=== PATIENT | female | born 1985 | race Caucasian/White ===

== ENCOUNTER → 2021-07-05 | Outpatient (CLI) | payer OTHER ==
--- NOTE | 2021-07-06 09:35 | MM ---
Reason for exam: screening (asymptomatic). Baseline mammogram. History: Patient is nulliparous. Family history of breast cancer in paternal grandmother at age 50 and breast cancer in maternal grandmother at age 50. Taking hormonal contraceptives beginning at age 19. Physical Findings: Nurse did not find any significant physical abnormalities on exam. MG 3D Screening Mammo W/Cad Bilateral CC and MLO view(s) were taken. There are scattered fibroglandular densities. Finding: There is a 12 mm lobulated mass in the upper outer quadrant of the right breast. ASSESSMENT: Incomplete: need additional imaging evaluation, BI-RAD 0 RECOMMENDATION: Special view mammogram and ultrasound of the right breast. [facility] will attempt to contact patient to return for supplemental views and ultrasound.
== END | disposition home or self-care (01) ==
LOC: RADMAMWWP 07:02
PROVIDERS: ATTEND Family Medicine
DX: Z12.39 Encounter for other screening for malignant neoplasm of breast (principal); Z80.3 Family history of malignant neoplasm of breast
CPT/HCPCS: 77063; 77067

== ENCOUNTER → 2021-07-13 | Outpatient (CLI) | payer OTHER ==
--- NOTE | 2021-07-13 11:46 | MM ---
Reason for exam: additional evaluation requested from abnormal screening. Last mammogram was performed less than 1 month ago. History: Patient is nulliparous. Family history of breast cancer in paternal grandmother at age 50 and breast cancer in maternal grandmother at age 50. Taking hormonal contraceptives beginning at age 19. Physical Findings: Nurse Summary: 0.5cm nodule in the right breast at 11 o'clock (nurse ms). MG 3D Work Up W/Cad RT Spot compression CC, spot compression MLO, and LM view(s) were taken of the right breast. Prior study comparison: July 05, 2021, bilateral MG 3d screening mammo w/cad. There are scattered fibroglandular densities. Finding: There is an intermediate concern, suspicious 14 mm equal density (isodense), circumscribed lobulated mass located 8 cm from the nipple in the upper outer quadrant, middle position of the right breast. These results were verbally communicated with the patient and result sheet given to the patient on 07/13/21. ASSESSMENT: Incomplete: need additional imaging evaluation, BI-RAD 0 RECOMMENDATION: Ultrasound of the right breast.
--- NOTE | 2021-07-13 11:50 | USB ---
Reason for exam: additional evaluation requested from abnormal screening. History: Patient is nulliparous. Family history of breast cancer in paternal grandmother at age 50 and breast cancer in maternal grandmother at age 50. Taking hormonal contraceptives beginning at age 19. US Breast Workup Limited RT Right limited breast ultrasound including focal area of concern, retroareolar and axilla demonstrates a 1.3 x 1.0 x 1.3cm oval, solid, hypoechoic lesion at 11 o'clock, only seen with harmonics on. These results were verbally communicated with the patient and result sheet given to the patient on 07/13/21. ASSESSMENT: Suspicious, BI-RAD 4 RECOMMENDATION: Ultrasound core biopsy of the right breast. Called Dr. Orozco's office with mammographic findings and has scheduled an appointment for the patient for 07/29/21 at 11:[address] Davis. Biopsy scheduled for 07/15/21 at 1:00. PRELIMINARY REPORT CALLED AND FAXED TO DR. DAVIS ON 07/13/21.
== END | disposition home or self-care (01) ==
LOC: RADMAMWWP 07:32
PROVIDERS: ATTEND Family Medicine
DX: R92.8 Other abnormal and inconclusive findings on diagnostic imaging of breast (principal)
CPT/HCPCS: 77065; 76642; G0279; 77061

== ENCOUNTER → 2021-07-28 | Day surgery (SDC) | payer OTHER ==
--- NOTE | 2021-07-15 12:57 | USB ---
EXAMINATION TYPE: US discontinued breast bx RT DATE OF EXAM: 07/15/2021 COMPARISON: 07/13/2021 HISTORY: Abnormal ultrasound TECHNIQUE: Ultrasound FINDINGS: Imaging was not performed. In the prehistory evaluation patient has been on large doses of ibuprofen although there has been a short period of holding, the typical time frame has not been met placing the patient at increased risk for bleeding. The patient will be rescheduled for after holdin g the ibuprofen the required time. IMPRESSION: 1. Procedure aborted due to insufficient prep time for medication withholding. Patient will be anand eduled.
[2021-07-28 09:42] VITALS: RESP 16
[2021-07-28 11:11] VITALS: BP 133/87; PULSE 83; TEMP 98
--- NOTE | 2021-07-28 11:27 | USB ---
EXAMINATION TYPE: US biopsy breast VAD RT DATE OF EXAM: 07/28/2021 CLINICAL HISTORY: R92.8 Abnormal Mammogram. TECHNIQUE: Ultrasound guided vaccuum assisted core biopsy of right breast. COMPARISON: 07/13/2021 ultrasound FINDINGS: The ultrasound guided core biopsy procedure was explained to the patient. The risks, benefits, alternatives were discussed. An informed consent was then obtained. Timeout was performed. The patient was placed in supine positioning for imaging and for the procedure. The overlying skin was prepped with betadine and sterilely draped in usual sterile fashion. Lidocaine 1% was used as anesthetic into the skin and deeper breast tissue up to area of concern in the breast. A small skin meño was made with surgical scalpel. Under ultrasound guidance, a 12-gauge vacuum assisted biopsy device was used to obtain 6 core samples. A biopsy clip was left in lesion. Ribbon clip was placed. Good hemostasis was obtained with direct pressure. Discharge instructions were discussed with the patient. The patient will follow up with the referring physician for results. Postprocedure mammogram: The patient was transferred to mammography for physician ordered post procedure mammogram for clip placement verification. The clip is in the expected region of the biopsy. The patient tolerated the procedure well without any immediate complication. The patient was discharged to home in stable condition. IMPRESSION: 1. Successful ultrasound guided biopsy right breast. Recommendations: 1. Recommendations are pending pathology results. Pathology Results: Benign RIGHT BREAST, ELEVEN O'CLOCK, ULTRASOUND GUIDED CORE BIOPSY: Fibroadenoma. Recommendation Follow up ultrasound of the right breast in 6 months. JAMES
--- NOTE | 2021-07-28 11:28 | MM ---
EXAMINATION TYPE: US biopsy breast VAD RT DATE OF EXAM: 07/28/2021 CLINICAL HISTORY: R92.8 Abnormal Mammogram. TECHNIQUE: Ultrasound guided vaccuum assisted core biopsy of right breast. COMPARISON: 07/13/2021 ultrasound FINDINGS: The ultrasound guided core biopsy procedure was explained to the patient. The risks, benef its, alternatives were discussed. An informed consent was then obtained. Timeout was performed. The patient was placed in supine positioning for imaging and for the procedure. The overlying skin w as prepped with betadine and sterilely draped in usual sterile fashion. Lidocaine 1% was used as ane sthetic into the skin and deeper breast tissue up to area of concern in the breast. A small skin vincent k was made with surgical scalpel. Under ultrasound guidance, a 12-gauge vacuum assisted biopsy device was used to obtain 6 core samples . A biopsy clip was left in lesion. Ribbon clip was placed. Good hemostasis was obtained with direct pressure. Discharge instructions were discussed with the pa eufemia. The patient will follow up with the referring physician for results. Postprocedure mammogram: The patient was transferred to mammography for physician ordered post proced ure mammogram for clip placement verification. The clip is in the expected region of the biopsy. The patient tolerated the procedure well without any immediate complication. The patient was dischar ged to home in stable condition. IMPRESSION: 1. Successful ultrasound guided biopsy right breast. Recommendations: 1. Recommendations are pending pathology results.
== END ==
LOC: RADUSWWP 07-15 12:01
PROVIDERS: ATTEND Surgery
DX: D24.1 Benign neoplasm of right breast (principal)
CPT/HCPCS: 88305; 77065; 19083; A4648; J2001

== ENCOUNTER → 2022-02-03 | Outpatient (CLI) | payer OTHER ==
--- NOTE | 2022-02-03 11:12 | USB ---
Reason for exam: follow-up at short interval from prior study. History: Patient is nulliparous. Family history of breast cancer in paternal grandmother at age 50 and breast cancer in maternal grandmother at age 50. Benign US biopsy breast VAD RT of the right breast, July 28, 2021. US discontinued breast bx RT of the right breast, July 15, 2021. Taking hormonal contraceptives beginning at age 19. Physical Findings: A clinical breast exam by your physician is recommended on an annual basis and results should be correlated with mammographic findings. US Breast Limited RT Right limited breast ultrasound including focal area of concern, retroareolar and axilla demonstrates a 0.9 x 0.5 x 0.9cm hypoechoic lesion at 11 o'clock, 9cm from nipple. ASSESSMENT: Benign, BI-RAD 2 RECOMMENDATION: Return to routine screening mammogram schedule for both breasts. Back on schedule.
== END | disposition home or self-care (01) ==
LOC: RADUSWWP 09:02
PROVIDERS: ATTEND Surgery
DX: R92.8 Other abnormal and inconclusive findings on diagnostic imaging of breast (principal)

== ENCOUNTER → 2022-12-14 | Outpatient (CLI) | payer OTHER ==
--- NOTE | 2022-12-14 10:22 | MM ---
Reason for Exam: Screening (asymptomatic). Last mammogram was performed 1 year(s) and 6 month(s) ago. Patient History: Menarche at age 15. Patient has no children. Premenopausal. Currently using Hormonal Contraceptives, starting at age 19. 07/28/2021, Benign Core Biopsy on the right side. 07/15/2021, US discontinued breast bx RT on the right side. Paternal grandmother had breast cancer, age 50. Maternal grandmother had breast cancer, age 50. Risk Values: Brisa 5 year model risk: 0.5%. NCI Lifetime model risk: 13.9%. Prior Study Comparison: 07/05/2021 Bilateral Screening Mammogram, [facility]. 07/13/2021 Right Diagnostic Mammogram, [facility]. 07/28/2021 Right Diagnostic Mammogram, [facility]. Tissue Density: The breast tissue is heterogeneously dense. This may lower the sensitivity of mammography. Findings: Analyzed By CAD. Right breast biopsy changes are stable. Clip in place. There is no suspicious group of microcalcifications or new suspicious mass in either breast. Overall Assessment: Benign, BI-RAD 2 Management: Screening Mammogram of both breasts in 1 year. A clinical breast exam by your physician is recommended on an annual basis and results should be correlated with mammographic findings. [facility] will attempt to contact patient to return for supplemental views and ultrasound if indicated. Electronically signed and approved by: Doe Gonzalez DO
== END | disposition home or self-care (01) ==
LOC: RADMAMWWP 08:56
PROVIDERS: ATTEND Family Medicine
DX: Z12.31 Encounter for screening mammogram for malignant neoplasm of breast (principal); Z80.3 Family history of malignant neoplasm of breast; Z98.890 Other specified postprocedural states
CPT/HCPCS: 77063; 77067

== ENCOUNTER → 2023-12-22 | Outpatient (CLI) | payer OTHER ==
--- NOTE | 2023-12-26 22:17 | MM ---
Reason for Exam: Screening (asymptomatic). Last screening mammogram was performed 12 month(s) ago. Patient History: Menarche at age 15. Patient has no children. Premenopausal. Currently using Hormonal Contraceptives, starting at age 19. 07/28/2021, Benign Core Biopsy on the right side. 07/15/2021, US discontinued breast bx RT on the right side. Paternal grandmother had breast cancer, age 50. Maternal grandmother had breast cancer, age 50. Risk Values: Brisa 5 year model risk: 0.6%. NCI Lifetime model risk: 13.8%. Prior Study Comparison: 07/13/2021 Right Diagnostic Mammogram, [facility]. 07/28/2021 Right Diagnostic Mammogram, [facility]. 12/14/2022 Bilateral MG 3D screening mammo w/cad, [facility]. Tissue Density: The breast tissue is almost entirely fat. Findings: Analyzed By CAD. Chronic nodularity on the right with microclip related to prior biopsy. There is no suspicious group of microcalcifications or new suspicious mass in either breast. Overall Assessment: Benign, BI-RAD 2 Management: Screening Mammogram of both breasts in 1 year. . Patient should continue monthly self-breast exams. A clinical breast exam by your physician is recommended on an annual basis. This exam should not preclude additional follow-up of suspicious palpable abnormalities. Note on Brisa scores and lifetime risk: 1. A Brisa score greater than 3% is considered moderate risk. If this is the case, consider specialist referral to assess eligibility for a risk reducing agent. 2. If overall lifetime risk for the development of breast cancer is 20% or higher, the patient may qualify for future screening with alternating mammogram and breast MRI. Electronically signed and approved by: Bryan Perea M.D. Radiologist
== END | disposition home or self-care (01) ==
LOC: RADMAMWWP 14:47
PROVIDERS: ATTEND Family Medicine
DX: Z12.31 Encounter for screening mammogram for malignant neoplasm of breast (principal); Z80.3 Family history of malignant neoplasm of breast
CPT/HCPCS: 77063; 77067